=== PATIENT | female | born 1965 | race Caucasian/White ===

== ENCOUNTER → 2018-05-10 | Emergency (ER) | payer BC ==
[2018-05-11] MEDS: LORAZEPAM 2 MG INJ IM (00:26)
[2018-05-11 01:55] LABS: URINE BLOOD (Dip) POC 2+ (NEGATIVE); URINE KETONES (Dip) POC 1+ (NEGATIVE); URINE LEUKOCYTE EST (Dip) POC Negative (NEGATIVE); URINE NITRITE (Dip) POC Positive (NEGATIVE); URINE TOTAL PROTEIN POC 1+ (NEGATIVE)
== END | disposition home or self-care (01) ==
LOC: E/R 23:47
DX: N39.0 Urinary tract infection, site not specified (principal); F41.9 Anxiety disorder, unspecified
CPT/HCPCS: 81003; 96372; 99284; 99284-25